=== PATIENT | male | born 1965 | race Caucasian/White ===

== ENCOUNTER 2019-05-12 18:27 | Outpatient (REF) | payer OTHER, SELFPAY ==
[2019-05-12 21:30] LABS: HCT 44.9 % (40.0-50.0); HGB 15.4 g/dL (13.5-17.5); Mean Corp. HGB Concentration 34.3 g/dL (32.0-36.0); Mean Corpuscular Hemoglobin 30.3 pg (27.0-33.0); Mean Corpuscular Volume 88.2 fL (80-95); Mean Platelet Volume 11.2 fL (8.0-11.0); Platelet Count 200 x1000/uL (130-400); RBC 5.09 m/cumm (4.50-6.00); RBC Distribution Width 13.5 % (11.8-14.1); White Blood Cell Count 5.81 k/cumm (4.4-10.8)
[2019-05-12 21:44] LABS: Anion Gap 7.7 mmol/L (3-11); BUN 20 mg/dL (7-18); CO2 29.3 mmol/L (21.0-32.0); Calcium 8.8 mg/dL (8.5-10.1); Chloride 105 mmol/L (98-107); Glucose 136 mg/dL (74-106); Potassium 3.8 mmol/L (3.5-5.1); Sodium 142 mmol/L (136-145); TSH 2.09 uIU/mL (0.36-3.74)
[2019-05-14 10:06] LABS: LH 4.1 mIU/mL (1.5-9.3); Prolactin 0.7 ng/mL (2.1-17.7)
[2019-05-15 16:52] LABS: Testosterone, Free 4.21 ng/dL (4.06-15.6); Testosterone, Total 324 ng/dL (240-950)
== END 2019-05-12 18:47 ==
LOC: NCHCN 18:27
PROVIDERS: PCP Physician Assistant; Visit Provider Internal Medicine
DX: D44.3 Neoplasm of uncertain behavior of pituitary gland (principal); R53.83 Other fatigue; G47.30 Sleep apnea, unspecified
CPT/HCPCS: 80048; 84402; 84403; 85027; 83002; 84146; 84439; 84443

== ENCOUNTER 2021-04-11 16:39 | Outpatient (REF) | payer OTHER, SELFPAY ==
[2021-04-11 21:08] LABS: ALT 105 U/L (16-63); AST 32 U/L (15-37); Albumin 4.4 g/dL (3.4-5.0); Alkaline Phosphatase 114 U/L (46-116); Anion Gap 10.4 mmol/L (3-11); BUN 18 mg/dL (7-18); Bilirubin, Total 0.4 mg/dL (0.2-1.0); CO2 27.6 mmol/L (21.0-32.0); CREATININE 1.2 mg/dL (0.70-1.30); Calcium 9.4 mg/dL (8.5-10.1); Calculated LDL 129 mg/dL (<100); Chloride 102 mmol/L (98-107); Cholesterol 205 mg/dL (<200); Glucose 80 mg/dL (74-106); HDL Cholesterol 61 mg/dL (40-60); Potassium 4.2 mmol/L (3.5-5.1); Sodium 140 mmol/L (136-145); TSH 1.74 uIU/mL (0.36-3.74); Total Protein 7.3 g/dL (6.4-8.2); Triglyceride 78 mg/dL (<150)
== END 2021-04-11 16:40 | disposition home or self-care (01) ==
LOC: NCHCN 16:39
PROVIDERS: PCP Physician Assistant; Visit Provider Internal Medicine
DX: R53.83 Other fatigue (principal); R03.0 Elevated blood-pressure reading, without diagnosis of hypertension; E78.79 Other disorders of bile acid and cholesterol metabolism
CPT/HCPCS: 80053; 80061; 84443

== ENCOUNTER 2023-06-18 14:58 | Outpatient (REF) | payer OTHER, SELFPAY ==
[2023-06-18 20:44] LABS: HCT 45.6 % (40.0-50.0); HGB 15.9 g/dL (13.5-17.5); MCH 30.4 pg (27.0-33.0); MCHC 34.9 % (32.0-36.0); MCV 87 fL (80-95); Platelet Count 204 10^3/uL (130-400); RBC 5.23 10^6/uL (4.36-5.78); RDW-SD 41.6 fL; WBC 5.96 10^3/uL (4.4-10.8)
[2023-06-18 21:05] LABS: ALT 52 U/L (16-63); Anion Gap 6.8 mmol/L (3-11); BUN 19 mg/dL (7-18); CO2 30.2 mmol/L (21.0-32.0); CREATININE 1.1 mg/dL (0.70-1.30); Calcium 9.4 mg/dL (8.5-10.1); Chloride 106 mmol/L (98-107); Estimated GFR 77.33 (mL/min/1.73m2); Glucose 87 mg/dL (74-106); Potassium 4.5 mmol/L (3.5-5.1); Sodium 143 mmol/L (136-145); TSH 2.46 uIU/Ml (0.36-3.74)
[2023-06-19 17:34] LABS: Prolactin 0.7 ng/mL (2.1-17.7)
== END 2023-06-18 14:59 | disposition home or self-care (01) ==
LOC: NCHCN 14:58
PROVIDERS: PCP Physician Assistant; Visit Provider Internal Medicine
DX: R53.83 Other fatigue (principal); R74.01 Elevation of levels of liver transaminase levels; D44.3 Neoplasm of uncertain behavior of pituitary gland
CPT/HCPCS: 80048; 85027; 84146; 84443; 84460